=== PATIENT | female | born 1960 | race African-American/Black ===

== ENCOUNTER → 2017-01-13 | Outpatient (CLI) | payer OTHER, MEDICAID ==
[~2017-01-13] MED LIST: CARI-277; CARI350T21; OXYCODONE HCL 30 MG TABLET; PREMARIN 0.9 MG
== END | disposition home or self-care (01) ==
LOC: HDHVI->DVH 10:02
PROVIDERS: ATTEND Internal Medicine Cardiovascular Disease
DX: Z01.818 Encounter for other preprocedural examination (principal); I34.2 Nonrheumatic mitral (valve) stenosis; I35.0 Nonrheumatic aortic (valve) stenosis; I34.0 Nonrheumatic mitral (valve) insufficiency; I07.1 Rheumatic tricuspid insufficiency; I31.3 Pericardial effusion (noninflammatory)
CPT/HCPCS: 93306

== ENCOUNTER → 2017-02-03 | Outpatient (CLI) | payer OTHER, MEDICAID ==
[~2017-02-03] VITALS: Ht 162.6 cm; Wt 68.5 kg
== END | disposition home or self-care (01) ==
LOC: HDHVI->DVH 12:53
PROVIDERS: ATTEND Internal Medicine Cardiovascular Disease
DX: Z01.810 Encounter for preprocedural cardiovascular examination (principal); I10 Essential (primary) hypertension; F17.210 Nicotine dependence, cigarettes, uncomplicated
CPT/HCPCS: 93017

== ENCOUNTER → 2023-05-16 | Day surgery (SDC) | payer OTHER, MEDICAID ==
[2023-05-12 09:57] LABS: Urine Bacteria NONE SEEN /hpf (None Seen); Urine Blood Negative /uL (Negative); Urine Mucus FEW (None Seen); Urine Specific Gravity 1.024 (1.001-1.035); Urine WBC <1 /hpf (0 - 5)
[2023-05-12 10:07] LABS: Hematocrit 36.6 % (36.0-46.0); Mean Corpuscular Hemoglobin 31.3 pg (28.0-32.0); Mean Corpuscular Hgb Conc. 32.7 g/dL (32.0-36.0); Mean Corpuscular Volume 95.5 fL (80.0-100.0); Red Blood Cells 3.83 10^6/uL (4.0-5.20); Red Cell Distribution Width 13.8 % (11.8-14.3); White Blood Cell 5.3 10^3/uL (4.4-10.8)
[2023-05-12 10:13] LABS: INR 1.08 (0.9-1.15); Partial Thromboplastin Time 28.5 SEC (24.5-34.5)
[2023-05-12 10:21] LABS: Albumin 3.4 g/dL (3.4-5.0); Calcium 8.7 mg/dL (8.5-10.1); Potassium 4.1 mmol/L (3.5-5.1)
[2023-05-12 10:25] LABS: Bilirubin, Total 0.5 mg/dL (0.2-1.0); Total Protein 7.9 g/dL (6.4-8.2)
[2023-05-12 10:31] LABS: Band Neutrophils % (manual) 0; Basophils % (manual) 0 (0.0-2.0); Blast Cells 0; Metamyelocytes % 0; Myelocytes % 0; Promyelocytes % 0
[2023-05-12 12:16] LABS: Eosinophils % (manual) 1 (0-7); Lymphocytes % (manual) 64 (10.0-50.0); Monocytes % (manual) 7 (0-12); Reactive Lymphocytes 6
[~2023-05-16] VITALS: Ht 162.6 cm; Wt 68.5 kg
[~2023-05-16] MED LIST changes: +BENA5TAB38 PO; +BUPIVACAINE 0.25% INJ 50ML VIAL ONE; -CARI-277; -CARI350T21; +EST0625T PO; +GABA-1250 PO; +HYDROmorphone HCL 2 MG/ML VL/or syr IV ONE; +HYDROmorphone HCL 2 MG/ML VL/or syr IV PRN; +LIDOCAINE 1% HCL (LOCAL ANESTH.) INJ 20ML MDV ONE; +LIDOCAINE 1% INJ PF 5ML AMP ONE; +MIDAZOLAM HCL 2MG/2ML 2ml VIAL (1mg/ml) ONE; +NIFE1TAB31 PO; +ONDANSETRON HCL 4 MG/2 ML VIAL IV PRN; +ONDANSETRON HCL 4 MG/2 ML VIAL ONE; -OXYCODONE HCL 30 MG TABLET; -PREMARIN 0.9 MG; +PROPOFOL 10 MG/ML 20 ML IV ONE; +ZOLP5TAB5 PO; +ceFAZolin 1GM/50ML 100 ML IV ONE; +fentaNYL CITRATE 100 MCG/2 ML VL ONE
[2023-05-16 08:05] VITALS: PULSE 92; RESP 16; TEMP 97.2; O2SAT 97
[2023-05-16 09:26] VITALS: BP 130/84; PULSE 73; RESP 16; O2SAT 97
== END | disposition home or self-care (01) ==
LOC: SUR 06:06
PROVIDERS: ATTEND Orthopaedic Surgery Adult Reconstructive Orthopaedic Surgery
DX: G56.01 Carpal tunnel syndrome, right upper limb (principal); Z88.5 Allergy status to narcotic agent; Z87.891 Personal history of nicotine dependence; Z90.710 Acquired absence of both cervix and uterus; Z98.890 Other specified postprocedural states
CPT/HCPCS: 36415; 64721; 80053; 81001; 85007; 85027; 85610; 85730; J0690; J1170; J2001; J2250; J2405; J2704; J3010; J3490